=== PATIENT | male | born 1985 | race Two or more races ===

== ENCOUNTER 2016-11-17 11:20 | Day surgery (SDC) | payer OTHER ==
[~2016-11-17] VITALS: Ht 177.8 cm; Wt 105.3 kg
[2016-11-17] MEDS ORDERED: STOMACH MED (12:34)
[2016-11-17 12:35] VITALS: Ht 177.8 cm; Wt 105.3 kg
[2016-11-17] MEDS ORDERED: PROPOFOL 20 ML ONE (13:03)
[2016-11-17] MEDS ORDERED: LIDOCAINE 2% (SDV) 5 ML INJ ONE (13:03)
[2016-11-17 13:07] VITALS: BP 132/86; PULSE 82; RESP 18
--- NOTE | 2016-11-17 13:26 | OPPN ---
Date/Time of Note Date/Time of Note DATE: 11/17/16 TIME: 13:25 Operative Report Preoperative Diagnosis Abdominal pain Postoperative Diagnosis Gastroesophageal reflux disease Gastritis with erosions Operation/Procedure Performed Esophagogastroduodenoscopy and biopsy Surgeon see signature line delivery assistant None Anesthesia: MAC Estimated blood loss: none Transfusion Required none Specimen Gastric mucosal biopsy Grafts/Implants none Complications none BRIAN CABRERA MD Nov 17, 2016 13:26
[2016-11-17 13:45] VITALS: BP 120/77; RESP 20
--- NOTE | 2016-11-18 08:54 | GILP ---
DATE OF PROCEDURE: NAME OF PROCEDURES: Esophagogastroduodenoscopy and biopsy. SURGEON: Brian Sosa MD PREOPERATIVE DIAGNOSIS: Abdominal pain. POSTOPERATIVE DIAGNOSES: 1. Gastroesophageal reflux disease. 2. Gastritis with erosions. 3. Gastric mucosal biopsies were taken for Helicobacter pylori test. INDICATION FOR THE PROCEDURE: Mr. Oscar Mcclendon is a 31-year-old male patient who had upper abdom inal pain, not responding to therapy. The patient was scheduled for endoscopic examination for furt her evaluation. The procedure and possible complications were well explained to the patient. The patient understood and consented to the procedure. DESCRIPTION OF PROCEDURE: Under the influence of anesthesia, the gastroscope was carefully introduc ed into the esophagus and under direct vision, it was advanced to the stomach and through the pyloru s into the duodenal bulb and descending duodenum. FINDINGS: ESOPHAGUS: The patient had gastroesophageal reflux disease. STOMACH: He had gastritis with erosions. Gastric mucosal biopsies were taken for H. pylori test. DUODENUM: Normal. He tolerated the procedure very well and there was no complication from the procedure. At the end o f the procedure, he was awake with stable vital signs and he was discharged home to the care of his family. IMPRESSION: 1. Gastroesophageal reflux disease. 2. Gastritis with erosions. 3. Gastric mucosal biopsies were taken for Helicobacter pylori test. PLAN: 1. Omeprazole 40 mg p.o. q.a.m. 2. Await H. pylori test report. Dictated By: BRIAN MUNGUIA/LEONCIO Conf#: [id number] DID#: [id number]
--- NOTE | 2016-11-19 07:29 | CONS ---
PATIENT NAME: RAUL RAMIREZ DATE OF ADMISSION: DATE OF CONSULTATION: 10/31/2016 TYPE OF CONSULTATION: GASTROENTEROLOGY (PREOPERATIVE) REFERRING PHYSICIAN: Dr. Delvalle. HISTORY OF PRESENT ILLNESS: I thank you very much for this kind referral. Mr. Raul Ramirez is a 31-year-old male patient who has been referred to me for further evaluation of upper abdominal pain. There is no past history of peptic ulcer disease. He is not taking any nonsteroidal anti-inflammatory agents. His appetite has been good. No weight loss. No history of gallstones or liver disease. No change in the bowel habits and rectal bleeding. No past history of inflammatory bowel disease. Not hypertensive or diabetic. No history of heart disease or lung problem of kidney disease. He has degenerative joint disease of the back. SOCIAL HISTORY: Nonsmoker. No alcohol abuse. FAMILY HISTORY: No history of gastrointestinal tract neoplasm. ALLERGIES: NO DRUG ALLERGIES. MEDICATION: None. PHYSICAL EXAMINATION: VITAL SIGNS: He is 5 feet 10 inches tall and weighs 234 pounds. CARDIAC: Normal heart sounds. LUNGS: Clear. ABDOMEN: Soft. No masses. Normal bowel sounds. NEUROLOGIC: Normal exam. IMPRESSION: 1. Upper abdominal pain not responding to therapy. 2. Degenerative joint disease of the back. 3. Obesity. PLAN: 1. Endoscopic examination to rule out peptic ulcer disease. 2. Abdominal ultrasound for further evaluation of abdominal pain. 3. The patient was strongly advised to lose weight. 4. Because of the obesity with a short thick neck, he needs monitored anesthesia care. The procedure and possible complications were well explained to the patient. He understands and consents to the procedure. I thank you once again. Dictated By: MD EZRA Lema/shiva/yanique /Document#: [id number]
== END 2016-11-17 14:32 | disposition home or self-care (01) ==
LOC: GIL 11:20
PROVIDERS: ATTEND Internal Medicine Gastroenterology
DX: K21.9 Gastro-esophageal reflux disease without esophagitis (principal); K29.70 Gastritis, unspecified, without bleeding; K25.9 Gastric ulcer, unspecified as acute or chronic, without hemorrhage or perforation; E66.9 Obesity, unspecified; Z68.33 Body mass index [BMI] 33.0-33.9, adult
CPT/HCPCS: 43239; 87081; Z7610